=== PATIENT | female | born 2000 | race Caucasian/White ===

== ENCOUNTER → 2025-04-21 | Outpatient (REF) | LOC: M EMP 12:42 | PROVIDERS: ATTEND Family Medicine | DX: Z11.52 Encounter for screening for COVID-19 (principal) ==

== ENCOUNTER 2025-07-23 16:46 | Emergency (ER) | payer MEDICAID, OTHER, SELFPAY ==
[~2025-07-23] VITALS: Ht 157.5 cm; Wt 81.3 kg
[2025-07-23] MEDS ORDERED: PREN200C PO (16:50)
[2025-07-23 17:53] LABS: BASO # 0.0 10^3/uL (0.0-0.2); BASO % 0.4 % (0.0-1.0); EOS # 0.1 10^3/uL (0.0-0.5); EOS % 1.0 % (0.0-3.0); LYMPH # 1.2 10^3/uL (1.5-5.0); LYMPH % 17.0 % (24.0-44.0); MONO # 0.3 10^3/uL (0.0-0.8); MONO % 4.5 % (2.0-8.0); NEUTROPHILS # 5.2 10^3/uL (1.5-8.5); NEUTROPHILS % 76.7 % (36.0-66.0); PLATELET COUNT, AUTOMATED 266 10^3/uL (150-450)
[2025-07-23 18:00] VITALS: TEMP 97.5
[2025-07-23 18:14] LABS: CALCIUM LEVEL 9.1 MG/DL (8.5-10.1); CARBON DIOXIDE LEVEL 25 MMOL/L (20-31); CHLORIDE LEVEL 104 MMOL/L (98-107); CREATININE FOR GFR 0.61 MG/DL (0.55-1.30); GLOMERULAR FILTRATION RATE > 90.0 (>60); POTASSIUM SERUM 3.5 MMOL/L (3.5-5.1); SODIUM LEVEL 140 MMOL/L (136-145)
[2025-07-23 18:33] LABS: KETONE, URINE AUTO RFX NEGATIVE (NEGATIVE); LEUKOCYTE ESTERASE UR AUTO RFX 2+ (NEGATIVE); MUCUS, URINE RFX SMALL (NEGATIVE); NITRITE, URINE AUTO RFX NEGATIVE (NEGATIVE); RBC, URINE AUTO RFX 9 /HPF (0-3); SQUAM EPITHELIAL CELL UR AURFX 8 /HPF (0-6); WBC, URINE AUTO RFX 36 /HPF (0-3)
[2025-07-23] MEDS: ONDANSETRON 4MG ORAL DISINTEGRATING TAB PO ONE (19:10)
[2025-07-23 20:00] VITALS: O2SAT 100
[2025-07-23 21:04] VITALS: BP 117/55
== END 2025-07-23 21:05 | disposition home or self-care (01) ==
LOC: M ED 16:46
DX: O20.8 Other hemorrhage in early pregnancy (principal); Z87.440 Personal history of urinary (tract) infections; Z3A.01 Less than 8 weeks gestation of pregnancy

== ENCOUNTER → 2025-08-05 | Outpatient (REF) | payer MEDICAID ==
[~2025-08-05] MED LIST: PREN200C PO
== END ==
LOC: M PLALAB 15:09
PROVIDERS: ATTEND Advanced Practice Midwife
DX: Z34.80 Encounter for supervision of other normal pregnancy, unspecified trimester (principal); Z53.9 Procedure and treatment not carried out, unspecified reason

== ENCOUNTER → 2025-08-15 | Outpatient (CLI) | payer MEDICAID ==
[2025-08-15 18:37] LABS: PLATELET COUNT, AUTOMATED 298 10^3/uL (150-450)
[2025-08-15 19:38] LABS: HIV 1&2 SCREEN NEGATIVE (NEGATIVE)
[2025-08-15 19:47] LABS: HEPATITIS C VIRUS ABY INDEX 0.05 INDEX (<0.8)
[2025-08-15 20:01] LABS: Trichomonas vaginalis (AMP) NOT DETECTED (NEGATIVE)
[2025-08-15 20:24] LABS: GC DNA AMPLIFICATION NEGATIVE (NEGATIVE)
== END ==
LOC: M PLALAB 15:40
PROVIDERS: ATTEND Advanced Practice Midwife
DX: Z34.80 Encounter for supervision of other normal pregnancy, unspecified trimester (principal)